=== PATIENT | female | born 1940 | race Two or more races ===

== ENCOUNTER 2022-10-21 17:48 | Inpatient (IN) | payer OTHER ==
[~2022-10-21] VITALS: Ht 149.9 cm; Wt 106.0 kg
[2022-10-21] MEDS ORDERED: ACETAMINOPHEN 325 MG TAB PO PRN (21:15)
[2022-10-21] MEDS ORDERED: MORPHINE SULFATE INJ 2 MG/ml SYRG IV PRN (21:15)
[2022-10-21] MEDS ORDERED: ONDANSETRON HCL 4 MG/2 ML VIAL IV PRN (21:15)
[2022-10-21] MEDS ORDERED: hydrALAZINE HCL 10 MG TAB PO PRN (21:15)
[2022-10-21] MEDS ORDERED: DICY10CA PO (21:18)
[2022-10-21] MEDS ORDERED: MULT1TAB99 PO (21:20)
[2022-10-21] MEDS ORDERED: ATO40T PO (21:20)
[2022-10-21] MEDS ORDERED: MISC1TAB29 PO (21:21)
[2022-10-21 22:00] VITALS: BP 122/45; PULSE 71; RESP 18; TEMP 98; O2SAT 96
[2022-10-21 22:06] LABS: Basophils # (auto) 0 10 ^3/uL (0-0.2); Basophils % (auto) 0.1 % (0.0-2.0); Eosinophils # (auto) 0 10 ^3/uL (0-0.8); Hemoglobin 12.3 g/dL (12.2-16.2); Lymphocytes # (auto) 0.8 10 ^3/uL (0.4-5.4); Lymphocytes % (auto) 9.8 % (10.0-50.0); Mean Corpuscular Hgb Conc. 33.3 g/dL (32.0-36.0); Mean Corpuscular Volume 96.2 fL (80.0-100.0); Monocytes # (auto) 0.3 10 ^3/uL (0-1.3); Monocytes % (auto) 3.4 % (0.0-12.0); Neutrophils # (auto) 6.6 10 ^3/uL (1.6-8.6); Neutrophils % (auto) 86.7 % (37.0-80.0); Red Blood Cells 3.85 10^6/uL (4.0-5.20); Red Cell Distribution Width 13.9 % (11.8-14.3); White Blood Cell 7.6 10^3/uL (4.4-10.8)
[2022-10-21 22:13] LABS: Anion Gap 4.6 (5-15); Carbon Dioxide 24.4 mmol/L (20-30); Chloride 109 mmol/L (98-107); Potassium 3.6 mmol/L (3.5-5.1); Sodium 138 mmol/L (136-145)
[2022-10-21 22:14] LABS: Calcium 8.8 mg/dL (8.7-10.4)
[2022-10-21 22:19] LABS: BUN/Creatinine Ratio 14.1 (10.0-20.0); Blood Urea Nitrogen 10 mg/dL (9-23); Glucose 123 mg/dL (74-106)
[2022-10-21 22:28] LABS: INR 1.11 (0.9-1.15); Prothrombin Time 11.6 sec (9.3-11.8)
[2022-10-21] MEDS: SODIUM CHLORIDE 0.9% 1,000 ML IV SCH (22:44)
[2022-10-21] MEDS ORDERED: ENOXAPARIN SOD 40 MG/0.4 ML SYRINGE SC ONE (23:00)
[2022-10-21 23:32] VITALS: PULSE 69
[2022-10-22] VITALS (18 sets, daily range): BP systolic 124–179; BP diastolic 51–78; PULSE 61–88; RESP 12–100; TEMP 97.4–98.4; O2SAT 90–100
[2022-10-22 00:54] LABS: Urine Bacteria NONE SEEN /hpf (None Seen); Urine Blood 1+ /uL (Negative); Urine Clarity Clear (Clear); Urine Color Yellow (Yellow); Urine Mucus FEW (None Seen); Urine Protein, UAD Negative (Negative); Urine Specific Gravity 1.015 (1.001-1.035); Urine Urobilinogen Normal (Negative); Urine WBC 2 /hpf (0 - 5); Urine pH 6.5 (5.0-8.0)
[2022-10-22] MEDS: ENOXAPARIN SOD 40 MG/0.4 ML SYRINGE SC SCH (07:30)
[2022-10-22] MEDS: PANTOPRAZOLE 40 MG/10 ML VIAL INJ IV SCH (09:33)
[2022-10-22] MEDS: SODIUM CHLORIDE 0.9% 1,000 ML IV SCH ×2 (10:35→23:55)
[2022-10-22] MEDS ORDERED: VANCOMYCIN HCL 1000 MG VL ONE (12:06)
[2022-10-22] MEDS ORDERED: TRANEXAMIC ACID 20 ML ONE (12:08)
[2022-10-22] MEDS ORDERED: BUPIVACAINE 0.25% INJ 50ML VIAL ONE (12:08)
[2022-10-22] MEDS ORDERED: KETOROLAC TROMETH 30 MG/ML 1ML VIAL ONE (12:09)
[2022-10-22] MEDS ORDERED: MORPHINE SULF PF 5 MG/10 ML VIAL ONE ×2 (12:09→13:45)
[2022-10-22] MEDS ORDERED: ceFAZolin 1GM/50ML 100 ML IV ONE (13:38)
[2022-10-22] MEDS ORDERED: BUPIVACAINE 0.5% P/F INJ 10 ML VIAL ONE (13:40)
[2022-10-22] MEDS ORDERED: FAMOTIDINE (10MG/ML) 2ML VL IV ONE (13:41)
[2022-10-22] MEDS ORDERED: fentaNYL CITRATE 100 MCG/2 ML VL ONE (13:45)
[2022-10-22] MEDS ORDERED: MIDAZOLAM HCL 2MG/2ML 2ml VIAL (1mg/ml) ONE (13:45)
[2022-10-22] MEDS ORDERED: PROPOFOL 10 MG/ML 20 ML IV ONE (13:46)
[2022-10-22] MEDS ORDERED: GLYCOPYRROLATE 0.2 MG/ML 1ML VIAL ONE (13:46)
[2022-10-22] MEDS ORDERED: ONDANSETRON HCL 4 MG/2 ML VIAL ONE (13:46)
[2022-10-22] MEDS ORDERED: ePHEDrine SULFATE 50 MG/ML AMP ONE (13:46)
[2022-10-22] MEDS ORDERED: ONDANSETRON HCL 4 MG/2 ML VIAL IV PRN (15:15)
[2022-10-22] MEDS ORDERED: KETOROLAC TROMETH 30 MG/ML 1ML VIAL IV PRN (15:15)
[2022-10-22] MEDS ORDERED: NALOXONE HCL 0.4 MG/ML VIAL IV PRN (15:15)
[2022-10-22] MEDS ORDERED: DexAMETHasone SOD PHOS 10MG/1ML VIAL INJ IV PRN (15:15)
[2022-10-22] MEDS ORDERED: diphenhdrAMINE HCL 50 MG/1 ML VL IV PRN (15:15)
[2022-10-22] MEDS ORDERED: KETAMINE 50mg/ML 10ml Vial (500mg/10ml) IV ONE (16:30)
[2022-10-22] MEDS: ceFAZolin 1GM/50ML 50 ML IV SCH ×2 (18:09→21:27)
[2022-10-22] MEDS: LACTATED RINGER'S 1,000 ML IV SCH (18:10)
[2022-10-22] MEDS: SODIUM CHLOR 0.9% PF (SALINE LOCK) 10ML VIAL/SYR IV SCH (22:00)
[2022-10-23] VITALS (22 sets, daily range): BP systolic 117–163; BP diastolic 52–69; PULSE 58–107; RESP 12–100; TEMP 97.4–97.7; O2SAT 92–100
[2022-10-23] MEDS: LACTATED RINGER'S 1,000 ML IV SCH ×2 (01:15→11:15)
[2022-10-23] MEDS: ceFAZolin 1GM/50ML 50 ML IV SCH (03:09)
[2022-10-23] MEDS: SODIUM CHLOR 0.9% PF (SALINE LOCK) 10ML VIAL/SYR IV SCH ×3 (06:00→21:35)
[2022-10-23] MEDS: PANTOPRAZOLE 40 MG/10 ML VIAL INJ IV SCH (09:16)
[2022-10-23] MEDS: ENOXAPARIN SOD 40 MG/0.4 ML SYRINGE SC SCH (09:16)
[2022-10-23] MEDS: SODIUM CHLORIDE 0.9% 1,000 ML IV SCH (13:15)
[2022-10-23] MEDS: HYDROcodone-ACET 5/325MG TAB PO PRN (17:40)
[2022-10-23 21:28] LABS: Basophils # (auto) 0 10 ^3/uL (0-0.2); Basophils % (auto) 0.2 % (0.0-2.0); Eosinophils # (auto) 0 10 ^3/uL (0-0.8); Eosinophils % (auto) 0.5 % (0.0-7.0); Hematocrit 30.6 % (36.0-46.0); Hemoglobin 10.4 g/dL (12.2-16.2); Lymphocytes # (auto) 1.1 10 ^3/uL (0.4-5.4); Lymphocytes % (auto) 13.9 % (10.0-50.0); Mean Corpuscular Hemoglobin 32.7 pg (28.0-32.0); Mean Corpuscular Hgb Conc. 33.9 g/dL (32.0-36.0); Mean Corpuscular Volume 96.6 fL (80.0-100.0); Monocytes # (auto) 0.4 10 ^3/uL (0-1.3); Monocytes % (auto) 4.5 % (0.0-12.0); Neutrophils # (auto) 6.4 10 ^3/uL (1.6-8.6); Neutrophils % (auto) 80.9 % (37.0-80.0); Red Blood Cells 3.17 10^6/uL (4.0-5.20); Red Cell Distribution Width 13.5 % (11.8-14.3); White Blood Cell 7.9 10^3/uL (4.4-10.8)
[2022-10-24] VITALS (7 sets, daily range): BP systolic 134–159; BP diastolic 41–87; PULSE 74–88; RESP 16–18; TEMP 97.8–98.9; O2SAT 93–98
[2022-10-24] MEDS: HYDROcodone-ACET 5/325MG TAB PO PRN ×3 (00:34→17:12)
[2022-10-24] MEDS: SODIUM CHLORIDE 0.9% 1,000 ML IV SCH ×2 (03:00→15:55)
[2022-10-24] MEDS: SODIUM CHLOR 0.9% PF (SALINE LOCK) 10ML VIAL/SYR IV SCH ×3 (06:26→22:18)
[2022-10-24] MEDS: ENOXAPARIN SOD 40 MG/0.4 ML SYRINGE SC SCH (09:59)
[2022-10-24] MEDS: PANTOPRAZOLE 40 MG/10 ML VIAL INJ IV SCH (09:59)
[2022-10-25] VITALS (7 sets, daily range): BP systolic 130–155; BP diastolic 54–65; PULSE 74–87; RESP 16–17; TEMP 98.2–98.4; O2SAT 94–98
[2022-10-25] MEDS: SODIUM CHLORIDE 0.9% 1,000 ML IV SCH ×2 (01:16→14:29)
[2022-10-25] MEDS: HYDROcodone-ACET 5/325MG TAB PO PRN ×3 (03:23→21:44)
[2022-10-25] MEDS: SODIUM CHLOR 0.9% PF (SALINE LOCK) 10ML VIAL/SYR IV SCH ×3 (05:41→21:38)
[2022-10-25] MEDS: GABAPENTIN 100 MG CAP PO SCH (10:27)
[2022-10-25] MEDS: ENOXAPARIN SOD 40 MG/0.4 ML SYRINGE SC SCH (10:27)
[2022-10-25] MEDS: PANTOPRAZOLE 40 MG/10 ML VIAL INJ IV SCH (10:28)
[2022-10-25] MEDS ORDERED: DOCUSATE SOD 100 MG CAP PO PRN (11:45)
[2022-10-25] MEDS: ATORVASTATIN 20 MG TAB PO SCH (21:37)
[2022-10-26] VITALS (8 sets, daily range): BP systolic 118–164; BP diastolic 53–79; PULSE 70–78; RESP 16–18; TEMP 97.7–99; O2SAT 95–97
[2022-10-26] MEDS: SODIUM CHLOR 0.9% PF (SALINE LOCK) 10ML VIAL/SYR IV SCH ×3 (05:18→23:43)
[2022-10-26] MEDS: SODIUM CHLORIDE 0.9% 1,000 ML IV SCH ×2 (09:52→21:15)
[2022-10-26] MEDS: PANTOPRAZOLE 40 MG/10 ML VIAL INJ IV SCH (09:52)
[2022-10-26] MEDS: GABAPENTIN 100 MG CAP PO SCH (09:53)
[2022-10-26] MEDS: ENOXAPARIN SOD 40 MG/0.4 ML SYRINGE SC SCH (09:54)
[2022-10-26] MEDS: HYDROcodone-ACET 5/325MG TAB PO PRN ×2 (09:54→22:36)
[2022-10-26 14:56] LABS: COVID19 ANTIGEN SOFIA FIA NEGATIVE (NEGATIVE)
[2022-10-26] MEDS: ATORVASTATIN 20 MG TAB PO SCH (23:42)
== END 2022-10-27 01:13 | DRG 522 ==
LOC: TELE-CENTR 20:29 → UNDOADMIN 20:29 → TELE-CENTR 21:17
PROVIDERS: ADMIT Internal Medicine; ATTEND Internal Medicine
PROC: 0SRS0JZ Replacement of Left Hip Joint, Femoral Surface with Synthetic Substitute, Open Approach (ICD-10-PCS; principal; 2022-10-23)
DX: S72.002A Fracture of unspecified part of neck of left femur, initial encounter for closed fracture (principal); K21.9 Gastro-esophageal reflux disease without esophagitis; I10 Essential (primary) hypertension; E78.5 Hyperlipidemia, unspecified; M21.372 Foot drop, left foot; R20.2 Paresthesia of skin; W18.2XXA Fall in (into) shower or empty bathtub, initial encounter; Y92.091 Bathroom in other non-institutional residence as the place of occurrence of the external cause; Z83.3 Family history of diabetes mellitus; Y93.E1 Activity, personal bathing and showering; Y99.8 Other external cause status; Z20.822 Contact with and (suspected) exposure to COVID-19
CPT/HCPCS: 36415; 71045; 72170; 80048; 81001; 85025; 85610; 86850; 86900; 86901; 87081; 87426; 93005; 93306; 97110; 97116; 97163; 97530; C9113; G0378; J0690; J1885; J2250; J2405; J2704; J3490

== ENCOUNTER 2022-11-10 16:36 | Inpatient (IN) | payer OTHER ==
[~2022-11-10] VITALS: Ht 157.5 cm; Wt 61.9 kg
[~2022-11-10 16:36] MED LIST: ATO40T PO; DICY10CA PO; MISC1TAB29 PO; MULT1TAB99 PO
[2022-11-10 17:05] VITALS: PULSE 90; RESP 17; O2SAT 96
[2022-11-10 19:30] VITALS: PULSE 124; RESP 24; O2SAT 94
[2022-11-10 19:54] LABS: Basophils # (auto) 0 10 ^3/uL (0-0.2); Eosinophils # (auto) 0.1 10 ^3/uL (0-0.8); Hemoglobin 11.5 g/dL (12.2-16.2); Neutrophils % (auto) 86.4 % (37.0-80.0)
[2022-11-10 19:56] LABS: Basophils % (auto) 0.2 % (0.0-2.0); Eosinophils % (auto) 0.7 % (0.0-7.0); Hematocrit 34.1 % (36.0-46.0); Lymphocytes # (auto) 0.9 10 ^3/uL (0.4-5.4); Lymphocytes % (auto) 5.8 % (10.0-50.0); Mean Corpuscular Hemoglobin 31.7 pg (28.0-32.0); Mean Corpuscular Hgb Conc. 33.6 g/dL (32.0-36.0); Mean Corpuscular Volume 94.4 fL (80.0-100.0); Monocytes # (auto) 1.1 10 ^3/uL (0-1.3); Monocytes % (auto) 6.9 % (0.0-12.0); Neutrophils # (auto) 13.5 10 ^3/uL (1.6-8.6); Red Blood Cells 3.62 10^6/uL (4.0-5.20); Red Cell Distribution Width 14.2 % (11.8-14.3); White Blood Cell 15.6 10^3/uL (4.4-10.8)
[2022-11-10 20:11] LABS: INR 1.04 (0.9-1.15); Partial Thromboplastin Time 29.1 SEC (24.5-34.5); Prothrombin Time 10.9 sec (9.3-11.8)
[2022-11-10 20:12] LABS: Platelet Estimate Increased
[2022-11-10] MEDS ORDERED: IOHEXOL 300 MG/ML 100ML BOTTLE IJ ONE (20:19)
[2022-11-10] MEDS ORDERED: ONDANSETRON HCL 4 MG/2 ML VIAL IV ONE (21:00)
[2022-11-10] MEDS ORDERED: cefTRIAXone 1GM/50ML D5W 50 ML IV ONE (21:00)
[2022-11-10] MEDS ORDERED: metroNIDAZOLE 500MG/100ML 100 ML IV ONE (21:00)
[2022-11-10] MEDS ORDERED: MORPHINE SULFATE 4 MG/ML SYR/VIAL IV ONE (21:00)
[2022-11-10] MEDS ORDERED: LACTATED RINGER'S 1,000 ML IV ONE (21:00)
[2022-11-11] MEDS ORDERED: MORPHINE SULFATE INJ 2 MG/ml SYRG IV PRN ×2 (00:45→19:15)
[2022-11-11 02:03] LABS: Alanine Aminotransferase 21 U/L (7-40); Alkaline Phosphatase 145 U/L (46-116); Anion Gap 17 (5-15); BUN/Creatinine Ratio 29.5 (10.0-20.0); Blood Alcohol < 3.0 mg/dL (<10); Blood Urea Nitrogen 31 mg/dL (9-23); Calcium 8.7 mg/dL (8.7-10.4); Carbon Dioxide 17 mmol/L (20-30); Chloride 98 mmol/L (98-107); Glucose 102 mg/dL (74-106); Lipase 129 U/L (12-53); Magnesium 2.5 mg/dL (1.6-2.6); Potassium 4.4 mmol/L (3.5-5.1); Sodium 132 mmol/L (136-145)
[2022-11-11 02:04] LABS: Albumin 3.8 g/dL (3.2-4.8); Aspartate Aminotransferase 36 U/L (13-40); Bilirubin, Total 0.6 mg/dL (0.2-1.0); Total Protein 6.7 g/dL (5.7-8.2)
[2022-11-11] MEDS ORDERED: LACTATED RINGER'S 1,000 ML IV ONE (03:45)
[2022-11-11] MEDS ORDERED: ENOXAPARIN SOD 80 MG/0.8ML SYRINGE SC ONE (03:45)
[2022-11-11 03:59] LABS: Urine Bacteria FEW /hpf (None Seen); Urine Blood Negative /uL (Negative); Urine Clarity Clear (Clear); Urine Color Yellow (Yellow); Urine Protein, UAD TRACE (Negative); Urine Specific Gravity 1.017 (1.001-1.035); Urine Urobilinogen Normal (Negative); Urine WBC 22 /hpf (0 - 5); Urine pH 5.5 (5.0-8.0)
[2022-11-11 04:25] LABS: CRP High Sensitivity 15.55 mg/dL (<1.0)
[2022-11-11 04:34] LABS: COVID19 ANTIGEN SOFIA FIA NEGATIVE (NEGATIVE)
[2022-11-11] MEDS: PIPERACILLIN-TAZOB 3.375GM 100 ML IV SCH ×3 (05:57→22:13)
[2022-11-11] MEDS: SODIUM CHLORIDE 0.9% 1,000 ML IV SCH ×2 (05:57→15:01)
[2022-11-11 06:48] LABS: Triglycerides 74 mg/dL (< 150)
[2022-11-11 06:49] LABS: LDL Cholesterol 31 mg/dL (< 100)
[2022-11-11 06:50] LABS: Cholesterol 77 mg/dL (< 200); HDL Cholesterol 27 mg/dL (40-59)
[2022-11-11 08:00] VITALS: PULSE 108; RESP 22; O2SAT 95
[2022-11-11] MEDS: ONDANSETRON HCL 4 MG/2 ML VIAL IV PRN (14:35)
[2022-11-11 19:25] VITALS: PULSE 92; RESP 12; O2SAT 98
[2022-11-11 21:00] VITALS: BP 155/55; PULSE 96; RESP 17; TEMP 98.2; O2SAT 96
[2022-11-12] VITALS (9 sets, daily range): BP systolic 141–168; BP diastolic 58–75; PULSE 80–96; RESP 14–20; TEMP 97.6–98.6; O2SAT 95–99
[2022-11-12] MEDS: SODIUM CHLORIDE 0.9% 1,000 ML IV SCH ×3 (02:19→20:50)
[2022-11-12] MEDS: PIPERACILLIN-TAZOB 3.375GM 100 ML IV SCH ×3 (05:28→20:50)
[2022-11-12] MEDS ORDERED: GASTROGRAFIN 120 ML SOL ONE (13:10)
[2022-11-12] MEDS: MORPHINE SULFATE INJ 2 MG/ml SYRG IV PRN (16:07)
[2022-11-12] MEDS: ONDANSETRON HCL 4 MG/2 ML VIAL IV PRN (16:14)
[2022-11-13] VITALS (7 sets, daily range): BP systolic 156–175; BP diastolic 57–77; PULSE 85–99; RESP 14–18; TEMP 97.8–98.1; O2SAT 94–97
[2022-11-13] MEDS: SODIUM CHLORIDE 0.9% 1,000 ML IV SCH (05:42)
[2022-11-13] MEDS: MORPHINE SULFATE INJ 2 MG/ml SYRG IV PRN ×2 (05:42→18:24)
[2022-11-13] MEDS: ONDANSETRON HCL 4 MG/2 ML VIAL IV PRN ×3 (05:42→23:34)
[2022-11-13] MEDS: PIPERACILLIN-TAZOB 3.375GM 100 ML IV SCH ×3 (05:42→21:10)
[2022-11-13] MEDS ORDERED: CLINIMIX PER PHARMACY 0 ML IV SCH (13:30)
[2022-11-13 14:57] LABS: Anion Gap 10 (5-15); Calcium 8.9 mg/dL (8.7-10.4); Carbon Dioxide 25 mmol/L (20-30)
[2022-11-13 15:02] LABS: BUN/Creatinine Ratio 18.6 (10.0-20.0); Blood Urea Nitrogen 11 mg/dL (9-23); Glucose 113 mg/dL (74-106)
[2022-11-13 15:03] LABS: Magnesium 1.7 mg/dL (1.6-2.6)
[2022-11-13 15:16] LABS: Sodium 146 mmol/L (136-145)
[2022-11-13 15:17] LABS: Chloride 111 mmol/L (98-107)
[2022-11-13 15:18] LABS: Potassium 2.8 mmol/L (3.5-5.1)
[2022-11-13] MEDS ORDERED: POTASSIUM CHLORIDE 60 MEQ, LIDOCAINE 1% (LOCAL ANESTH.) 6 ML in SODIUM CHL 0.9% 500 ML IV ONE (16:00)
[2022-11-13] MEDS: MAGNESIUM SULFATE 1GM/100ML 100 ML IV SCH ×2 (16:26→17:48)
[2022-11-13] MEDS ORDERED: LIDOCAINE 1% (LOCAL ANESTH.) PF 5ml SDV ID ONE (18:15)
[2022-11-13] MEDS: ENOXAPARIN SOD 40 MG/0.4 ML SYRINGE SC SCH (18:23)
[2022-11-13] MEDS: AMINO ACID INFUSION IN D10W 1,000 ML IV NR (20:50)
[2022-11-13] MEDS: SODIUM CHLOR 0.9% PF (SALINE LOCK) 10ML VIAL/SYR IV SCH (21:11)
[2022-11-13] MEDS: ACCU-CHEK COMFORT CURVE STRIP VI SCH (23:39)
[2022-11-13] MEDS: InsuLIN REG 1unit/0.01ml Soln (100units/ml) SC SCH (23:43)
[2022-11-14] VITALS (7 sets, daily range): BP systolic 149–165; BP diastolic 51–92; PULSE 76–91; RESP 16–19; TEMP 97.3–98.6; O2SAT 95–99
[2022-11-14] MEDS ORDERED: DEXTROSE (50%) 50ML SYRG IV SCH
[2022-11-14] MEDS: ACCU-CHEK COMFORT CURVE STRIP VI SCH ×4 (05:32→23:36)
[2022-11-14] MEDS: PIPERACILLIN-TAZOB 3.375GM 100 ML IV SCH ×3 (05:32→20:48)
[2022-11-14] MEDS: InsuLIN REG 1unit/0.01ml Soln (100units/ml) SC SCH ×4 (05:37→23:34)
[2022-11-14 05:55] LABS: Basophils # (auto) 0 10 ^3/uL (0-0.2); Basophils % (auto) 0.5 % (0.0-2.0); Eosinophils # (auto) 0.6 10 ^3/uL (0-0.8); Eosinophils % (auto) 6.4 % (0.0-7.0); Hematocrit 30.9 % (36.0-46.0); Hemoglobin 10.1 g/dL (12.2-16.2); Lymphocytes # (auto) 1.2 10 ^3/uL (0.4-5.4); Lymphocytes % (auto) 13.6 % (10.0-50.0); Mean Corpuscular Hemoglobin 31.3 pg (28.0-32.0); Mean Corpuscular Hgb Conc. 32.6 g/dL (32.0-36.0); Monocytes # (auto) 0.6 10 ^3/uL (0-1.3); Monocytes % (auto) 6.8 % (0.0-12.0); Neutrophils # (auto) 6.4 10 ^3/uL (1.6-8.6); Neutrophils % (auto) 72.7 % (37.0-80.0); Red Blood Cells 3.22 10^6/uL (4.0-5.20); Red Cell Distribution Width 14.4 % (11.8-14.3); White Blood Cell 8.8 10^3/uL (4.4-10.8)
[2022-11-14 06:13] LABS: Alanine Aminotransferase 12 U/L (7-40); Albumin 3.4 g/dL (3.2-4.8); Alkaline Phosphatase 89 U/L (46-116); Anion Gap 3 (5-15); Aspartate Aminotransferase 19 U/L (13-40); BUN/Creatinine Ratio 17.2 (10.0-20.0); Bilirubin, Total 0.4 mg/dL (0.2-1.0); Blood Urea Nitrogen 10 mg/dL (9-23); Calcium 8.6 mg/dL (8.7-10.4); Carbon Dioxide 30 mmol/L (20-30); Chloride 110 mmol/L (98-107); Glucose 150 mg/dL (74-106); Phosphorus 1.4 mg/dL (2.4-5.1); Sodium 143 mmol/L (136-145); Total Protein 5.4 g/dL (5.7-8.2)
[2022-11-14] MEDS: SODIUM CHLOR 0.9% PF (SALINE LOCK) 10ML VIAL/SYR IV SCH ×2 (11:56→20:49)
[2022-11-14] MEDS: PANTOPRAZOLE 40 MG/10 ML VIAL INJ IV SCH (11:56)
[2022-11-14] MEDS: ENOXAPARIN SOD 40 MG/0.4 ML SYRINGE SC SCH (11:56)
[2022-11-14] MEDS ORDERED: POTASSIUM PHOSPHATE 44 MEQ in D5W 5% 250 ML IV ONE (13:00)
[2022-11-14] MEDS: AMINO ACID INFUSION IN D10W 1,000 ML IV NR (20:25)
[2022-11-14] MEDS: MORPHINE SULFATE INJ 2 MG/ml SYRG IV PRN (20:45)
[2022-11-15] VITALS (7 sets, daily range): BP systolic 133–159; BP diastolic 41–68; PULSE 77–103; RESP 18–20; TEMP 97.7–98.7; O2SAT 91–98
[2022-11-15] MEDS: PIPERACILLIN-TAZOB 3.375GM 100 ML IV SCH ×3 (05:37→19:49)
[2022-11-15] MEDS: ACCU-CHEK COMFORT CURVE STRIP VI SCH ×4 (05:40→23:54)
[2022-11-15] MEDS: InsuLIN REG 1unit/0.01ml Soln (100units/ml) SC SCH ×4 (05:40→23:54)
[2022-11-15] MEDS: ONDANSETRON HCL 4 MG/2 ML VIAL IV PRN (05:43)
[2022-11-15 06:05] LABS: Basophils # (auto) 0 10 ^3/uL (0-0.2); Basophils % (auto) 0.5 % (0.0-2.0); Eosinophils # (auto) 0.6 10 ^3/uL (0-0.8); Eosinophils % (auto) 6.9 % (0.0-7.0); Hematocrit 28.6 % (36.0-46.0); Hemoglobin 9.7 g/dL (12.2-16.2); Lymphocytes # (auto) 1.3 10 ^3/uL (0.4-5.4); Lymphocytes % (auto) 14.3 % (10.0-50.0); Mean Corpuscular Hemoglobin 31.8 pg (28.0-32.0); Mean Corpuscular Hgb Conc. 33.8 g/dL (32.0-36.0); Monocytes # (auto) 0.5 10 ^3/uL (0-1.3); Monocytes % (auto) 5.7 % (0.0-12.0); Neutrophils # (auto) 6.4 10 ^3/uL (1.6-8.6); Neutrophils % (auto) 72.6 % (37.0-80.0); Red Blood Cells 3.04 10^6/uL (4.0-5.20); White Blood Cell 8.8 10^3/uL (4.4-10.8)
[2022-11-15 06:25] LABS: Alanine Aminotransferase 11 U/L (7-40); Albumin 3.2 g/dL (3.2-4.8); Alkaline Phosphatase 79 U/L (46-116); Anion Gap 4 (5-15); Aspartate Aminotransferase 20 U/L (13-40); BUN/Creatinine Ratio 21.8 (10.0-20.0); Bilirubin, Total 0.4 mg/dL (0.2-1.0); Blood Urea Nitrogen 12 mg/dL (9-23); Calcium 8.2 mg/dL (8.7-10.4); Carbon Dioxide 29 mmol/L (20-30); Chloride 105 mmol/L (98-107); Glucose 129 mg/dL (74-106); Magnesium 1.2 mg/dL (1.6-2.6); Phosphorus 3.2 mg/dL (2.4-5.1); Potassium 3.1 mmol/L (3.5-5.1); Sodium 138 mmol/L (136-145); Total Protein 5.2 g/dL (5.7-8.2)
[2022-11-15] MEDS: ENOXAPARIN SOD 40 MG/0.4 ML SYRINGE SC SCH (09:00)
[2022-11-15] MEDS: SODIUM CHLOR 0.9% PF (SALINE LOCK) 10ML VIAL/SYR IV SCH ×2 (09:01→22:00)
[2022-11-15] MEDS: PANTOPRAZOLE 40 MG/10 ML VIAL INJ IV SCH (09:05)
[2022-11-15] MEDS: POTASSIUM CHL 20MEQ/100ML 100 ML IV SCH ×4 (12:15→17:15)
[2022-11-15] MEDS ORDERED: MAGNESIUM OXIDE 400 MG TAB PO ONE (14:15)
[2022-11-15] MEDS: MAGNESIUM SULFATE 1GM/100ML 100 ML IV SCH ×5 (15:00→19:14)
[2022-11-15] MEDS ORDERED: POTASSIUM CHLORIDE 40 MEQ, LIDOCAINE 1% (LOCAL ANESTH.) 4 ML in SODIUM CHL 0.9% 250 ML IV ONE (18:00)
[2022-11-15] MEDS ORDERED: ACETAMINOPHEN 325 MG TAB PO PRN (22:30)
[2022-11-16 05:00] VITALS: BP 143/74; PULSE 83; RESP 18; TEMP 98.2; O2SAT 96
[2022-11-16] MEDS: PIPERACILLIN-TAZOB 3.375GM 100 ML IV SCH ×2 (05:25→05:43)
[2022-11-16 06:40] LABS: Anion Gap 3 (5-15); Carbon Dioxide 28 mmol/L (20-30); Chloride 105 mmol/L (98-107); Potassium 4.1 mmol/L (3.5-5.1); Sodium 136 mmol/L (136-145)
[2022-11-16 06:41] LABS: Calcium 8.3 mg/dL (8.7-10.4)
[2022-11-16] MEDS: ACCU-CHEK COMFORT CURVE STRIP VI SCH ×2 (06:45→11:36)
[2022-11-16] MEDS: InsuLIN REG 1unit/0.01ml Soln (100units/ml) SC SCH ×2 (06:45→12:00)
[2022-11-16 06:46] LABS: BUN/Creatinine Ratio 17.6 (10.0-20.0); Blood Urea Nitrogen 9 mg/dL (9-23); Glucose 102 mg/dL (74-106)
[2022-11-16 06:47] LABS: Magnesium 1.8 mg/dL (1.6-2.6)
[2022-11-16 08:00] VITALS: PULSE 74; PULSE 79; RESP 16; O2SAT 98
[2022-11-16 09:00] VITALS: BP 158/64; PULSE 79; RESP 16; TEMP 98; O2SAT 98
[2022-11-16] MEDS: PANTOPRAZOLE 40 MG/10 ML VIAL INJ IV SCH (09:22)
[2022-11-16] MEDS: SODIUM CHLOR 0.9% PF (SALINE LOCK) 10ML VIAL/SYR IV SCH (09:23)
[2022-11-16] MEDS: ENOXAPARIN SOD 40 MG/0.4 ML SYRINGE SC SCH (09:23)
[2022-11-16] MEDS ORDERED: MAGNESIUM OXIDE 400 MG TAB PO ONE (11:00)
[2022-11-16 13:00] VITALS: BP 158/64; PULSE 79; RESP 16; TEMP 98; O2SAT 98
[2022-11-16 13:25] VITALS: BP 169/75; PULSE 79; RESP 19; TEMP 98.1; O2SAT 96
== END 2022-11-16 14:15 | disposition home health service (06) | DRG 388 ==
LOC: EDBD 16:36 → ER 16:36 → TELE 11-11 04:36 → TELE-EAST 11-11 20:25
PROVIDERS: ADMIT Nurse Practitioner Family; ATTEND Internal Medicine
PROC: 0D9670Z Drainage of Stomach with Drainage Device, Via Natural or Artificial Opening (ICD-10-PCS; 2022-11-11)
PROC: 02HV33Z Insertion of Infusion Device into Superior Vena Cava, Percutaneous Approach (ICD-10-PCS; principal; 2022-11-13)
PROC: B548ZZA Ultrasonography of Superior Vena Cava, Guidance (ICD-10-PCS; 2022-11-13)
DX: K56.609 Unspecified intestinal obstruction, unspecified as to partial versus complete obstruction (principal); I21.A1 Myocardial infarction type 2; J90 Pleural effusion, not elsewhere classified; N13.6 Pyonephrosis; I10 Essential (primary) hypertension; N32.0 Bladder-neck obstruction; R33.9 Retention of urine, unspecified; D72.829 Elevated white blood cell count, unspecified; Z20.822 Contact with and (suspected) exposure to COVID-19; D75.839 Thrombocytosis, unspecified; Z96.642 Presence of left artificial hip joint; E78.00 Pure hypercholesterolemia, unspecified; R31.0 Gross hematuria; K21.9 Gastro-esophageal reflux disease without esophagitis; M21.372 Foot drop, left foot; M54.16 Radiculopathy, lumbar region; Z83.3 Family history of diabetes mellitus; Z79.899 Other long term (current) drug therapy; Z93.3 Colostomy status
CPT/HCPCS: 36415; 36569; 71045; 74018; 74177; 74250; 76775; 80048; 80053; 80061; 80320; 81001; 82010; 82962; 83605; 83690; 83735; 83880; 83930; 84100; 84443; 84484; 85025; 85610; 85730; 86141; 87040; 87081; 87426; 93005; 93970; 96361; 96365; 96367; 96372; 96375; 96376; 97110; 97116; 97163; 97530; C9113; G0378; J0696; J1815; J2001; J2405; J2543; J3490; J7060

== ENCOUNTER 2022-11-29 15:29 | Emergency (ER) | payer OTHER ==
[~2022-11-29] VITALS: Ht 149.9 cm; Wt 41.2 kg
[2022-11-29 16:45] VITALS: PULSE 83; RESP 18; TEMP 97.4; O2SAT 96
[2022-11-29 18:05] LABS: Basophils # (auto) 0 10 ^3/uL (0-0.2); Basophils % (auto) 0.4 % (0.0-2.0); Eosinophils # (auto) 0.2 10 ^3/uL (0-0.8); Eosinophils % (auto) 2.9 % (0.0-7.0); Hemoglobin 10.6 g/dL (12.2-16.2); Lymphocytes # (auto) 1.4 10 ^3/uL (0.4-5.4); Mean Corpuscular Hemoglobin 31.8 pg (28.0-32.0); Mean Corpuscular Hgb Conc. 33.3 g/dL (32.0-36.0); Mean Corpuscular Volume 95.5 fL (80.0-100.0); Monocytes # (auto) 0.3 10 ^3/uL (0-1.3); Monocytes % (auto) 4.7 % (0.0-12.0); Neutrophils # (auto) 4.1 10 ^3/uL (1.6-8.6); Red Blood Cells 3.35 10^6/uL (4.0-5.20); Red Cell Distribution Width 15.5 % (11.8-14.3)
[2022-11-29 18:23] LABS: Albumin 3.6 g/dL (3.2-4.8); Alkaline Phosphatase 116 U/L (46-116); Anion Gap 4 (5-15); Aspartate Aminotransferase 21 U/L (13-40); BUN/Creatinine Ratio 24.1 (10.0-20.0); Blood Urea Nitrogen 13 mg/dL (9-23); Calcium 9.2 mg/dL (8.7-10.4); Carbon Dioxide 27 mmol/L (20-30); Chloride 105 mmol/L (98-107); Glucose 98 mg/dL (74-106); Potassium 4.4 mmol/L (3.5-5.1); Sodium 136 mmol/L (136-145)
[2022-11-29 18:24] LABS: Alanine Aminotransferase 9 U/L (7-40); Bilirubin, Total 0.6 mg/dL (0.2-1.0)
[2022-11-29] MEDS ORDERED: IOHEXOL 350 MG/ML 100ML IJ ONE (19:08)
[2022-11-29 20:00] VITALS: PULSE 82; RESP 17; O2SAT 95
[2022-11-29] MEDS ORDERED: ENOXAPARIN SOD 100 MG/1 ML SYRINGE SC ONE (22:15)
[2022-11-29] MEDS ORDERED: APIX5TAB PO ×2 (22:34→22:36)
[2022-11-30] VITALS: BP 148/60; PULSE 87; RESP 10; O2SAT 95
== END 2022-11-30 00:01 | disposition home or self-care (01) ==
LOC: ER 15:29
DX: I82.402 Acute embolism and thrombosis of unspecified deep veins of left lower extremity (principal); I10 Essential (primary) hypertension; K21.9 Gastro-esophageal reflux disease without esophagitis; E78.5 Hyperlipidemia, unspecified
CPT/HCPCS: 36415; 71045; 71275; 80053; 83605; 85025; 85379; 87040; 93971; 96372; 99285; J1650; Q9967